=== PATIENT | female | born 1980 | race Caucasian/White ===

== ENCOUNTER 2017-06-30 23:40 | Emergency (ER) | payer OTHER ==
[~2017-06-30] VITALS: Ht 157.5 cm; Wt 51.2 kg
[~2017-06-30 23:40] MED LIST: BUSPAR7.5 MG PO; Buspar PO; MOTRIN800 MG PO; NOHOMEMEDS; PERCOCET 5/31 TABLET PO; PRENATAL1 EACH PO; VENTOLIN HFA18 GM IH; ZOFRAN ODT8 MG PO
[2017-07-01] MEDS ORDERED: KEFLEX500 MG PO (01:08)
[2017-07-01] MEDS ORDERED: PERCOCET 5/31 TABLET PO (01:08)
[2017-07-01 01:14] VITALS: BP 139/90
== END 2017-07-01 01:18 | disposition home or self-care (01) ==
LOC: EME 23:40
PROC: 2W3KX1Z Immobilization of Left Finger using Splint (ICD-10-PCS; principal; 2017-06-30)
DX: S62.665A Nondisplaced fracture of distal phalanx of left ring finger, initial encounter for closed fracture (principal); S61.215A Laceration without foreign body of left ring finger without damage to nail, initial encounter; S60.142A Contusion of left ring finger with damage to nail, initial encounter; W23.0XXA Caught, crushed, jammed, or pinched between moving objects, initial encounter; Y92.039 Unspecified place in apartment as the place of occurrence of the external cause; Z88.8 Allergy status to other drugs, medicaments and biological substances
CPT/HCPCS: 73140; 99281; 99284

== ENCOUNTER 2017-10-29 02:34 | Emergency (ER) | payer OTHER ==
[~2017-10-29] VITALS: Ht 157.5 cm; Wt 54.1 kg
[~2017-10-29 02:34] MED LIST changes: +KEFLEX500 MG PO
[2017-10-29 02:52] LABS: APPEARANCE SL.HAZY ((CLEAR)); BILIRUBIN NEGATIVE; BLOOD MODERATE; COLOR YELLOW ((YELLOW)); GLUCOSE (STRIP) NEGATIVE; KETONES NEGATIVE; LEUKOCYTES LARGE; NITRITE NEGATIVE; PROTEIN (STRIP) NEGATIVE; SPECIFIC GRAVITY 1.009 (1.000-1.030); UROBILINOGEN 0.2 MG/DL (0.2-1.0)
[2017-10-29 02:58] LABS: BACTERIA NONE SEEN /HPF; EPITHELIAL CELLS 2+ /HPF; MUCUS NONE SEEN /LPF; UCUL ADDED? YES; WHITE BLOOD CELLS 30-40 /HPF (0-5)
[2017-10-29] MEDS ORDERED: AUGMENTIN875 MG PO (03:29)
[2017-10-29 03:53] VITALS: BP 121/77
== END 2017-10-29 03:53 | disposition home or self-care (01) ==
LOC: EME 02:34
DX: N39.0 Urinary tract infection, site not specified (principal); Z87.442 Personal history of urinary calculi; F41.9 Anxiety disorder, unspecified; F17.200 Nicotine dependence, unspecified, uncomplicated; Z90.49 Acquired absence of other specified parts of digestive tract; Z88.5 Allergy status to narcotic agent; Z88.6 Allergy status to analgesic agent
CPT/HCPCS: 81003; 81025; 87086; 99281; 99283; J0696